=== PATIENT | female | born 1990 | race Caucasian/White ===

== ENCOUNTER 2020-03-29 14:12 | Inpatient (IN) | payer OTHER ==
--- NOTE | 2020-03-29 16:00 | ED ---
Psych HPI - General Chief Complaint: Psychiatric Symptoms Stated Complaint: Mental Health Time Seen by Provider: 03/29/20 15:36 Source: patient Mode of arrival: ambulatory - History of Present Illness Initial Comments: 21-year-old feel presenting today for chief complaint of depression suicidal ideation. Patient states she's had suicidal ideations and increasing depression and anxiety since she's been off her medication she states she recently moved to [place] from [place]. Patient denies any physical complaints she states she did not attempt to overdose but has been the past. She denies homicidal ideation. - Related Data Home Medications Medication Instructions Recorded Confirmed No Known Home Medications 03/29/20 03/29/20 Allergies Allergy/AdvReac Type Severity Reaction Status Date / Time aripiprazole [From Abilify] AdvReac "body Verified 03/29/20 18:06 shuts down" haloperidol [From Haldol] AdvReac "body Verified 03/29/20 15:01 shuts down" Review of Systems ROS Statement: Those systems with pertinent positive or pertinent negative responses have been documented in the HPI. ROS Other: All systems not noted in ROS Statement are negative. Past Medical History Past Medical History: No Reported History History of Any Multi-Drug Resistant Organisms: MRSA Date of last positivie culture/infection: 2019 MDRO Source:: axilla Past Surgical History: Section Past Psychological History: Anxiety, Bipolar, Depression Smoking Status: Current every day smoker Past Alcohol Use History: None Reported Past Drug Use History: Marijuana General Exam - General Exam Comments Initial Comments: General: The patient is awake and alert, in no distress Eye: Pupils are equal, round and reactive to light, extra-ocular movements are intact. No nystagmus. There is normal conjunctiva bilaterally. No signs of icterus. Ears, nose, mouth and throat: There are moist mucous membranes and no oral lesions. Neck: The neck is supple, there is no tenderness or JVD. Cardiovascular: There is a regular rate and rhythm. No murmur, rub or gallop is appreciated. Respiratory: Lungs are clear to auscultation, respirations are non-labored, breath sounds are equal. No wheezes, stridor, rales, or rhonchi. Gastrointestinal: Soft, non-distended, non-tender abdomen without masses or organomegaly noted. There is no rebound or guarding present. Musculoskeletal: Normal ROM, no tenderness. Strength 5/5. Sensation intact. Pulses equal bilaterally 2+. Neurological: A&O x 3. CN II-XII intact grossly, There are no obvious motor or sensory deficits. Coordination appears grossly intact. Speech is normal. Skin: Skin is warm and dry and no rashes or lesions are noted. Psychiatric: Cooperative, tearful, pressure speech Limitations: no limitations Course Vital Signs 03/29/20 03/29/20 14:57 19:18 Temperature 97.9 F 98.1 F Pulse Rate 62 Respiratory 20 Rate Blood Pressure 103/76 O2 Sat by Pulse 99 Oximetry Medical Decision Making - Medical Decision Making 29yo presenting for suicidal ideation. No attempt> Remaining ROS (-). Patient admitted after medical clearance and EPS evaluation for inpatient treatment. Patient agreeable. Disposition Clinical Impression: Depression, Suicidal ideation Disposition: ADMITTED IP TO THIS HOSP Condition: Serious Is patient prescribed a controlled substance at d/c from ED?: No Time of Disposition: 22:14 Decision to Admit Reason: Admit from EC Decision Date: 03/29/20 Decision Time: 22:14
[2020-03-29] MEDS ORDERED: LORazepam 1 MG TAB PO STA (16:07)
[2020-03-29] MEDS ORDERED: ZIPRASIDONE 20 MG CAP PO STA (17:57)
[2020-03-29] MEDS ORDERED: MAGNESIUM HYDROXIDE 2,400 MG/10 ML CUP PO PRN (19:17)
[2020-03-29] MEDS ORDERED: ACETAMINOPHEN TAB 325 MG TAB PO PRN (19:17)
[2020-03-29] MEDS ORDERED: MAG HYDROX/AL HYDROX/SIMETH 30 ML CUP PO PRN (19:17)
[2020-03-29] MEDS ORDERED: hydrOXYzine pamoate 25 MG CAP PO PRN (19:19)
[2020-03-29] MEDS ORDERED: hydrOXYzine HCL 50 MG/ML 1 ML VIAL IM PRN (19:19)
[2020-03-29] MEDS: ZIPRASIDONE 20 MG VIAL IM PRN (20:00)
[2020-03-29] MEDS: NICOTINE 14MG/24HR PATCH TRANSDERM SCH (20:00)
[2020-03-30] MEDS: NICOTINE 14MG/24HR PATCH TRANSDERM SCH ×2 (07:55→18:30)
[2020-03-30] MEDS: ZIPRASIDONE 20 MG VIAL IM PRN ×2 (08:19→20:23)
[2020-03-30 09:22] LABS: Basophils # (A) 0.1 k/uL (0-0.2); Basophils % (A) 1 %; Eosinophils # (A) 0.1 k/uL (0-0.7); Eosinophils % (A) 2 %; HCT 42.2 % (34.0-46.0); HGB 12.9 gm/dL (11.4-16.0); Lymphocytes % (A) 30 %; MCH 28.8 pg (25.0-35.0); MCHC 30.6 g/dL (31.0-37.0); MCV 94.1 fL (80.0-100.0); Mean Platelet Volume 7.7; Monocytes # (A) 0.3 k/uL (0-1.0); Monocytes % (A) 5 %; Neutrophils % (A) 59 %; Platelet Count 326 k/uL (150-450); RBC 4.49 m/uL (3.80-5.40); RDW 15.2 % (11.5-15.5); WBC 6.7 k/uL (3.8-10.6)
[2020-03-30 09:31] LABS: ALT 15 U/L (4-34); AST 29 U/L (14-36); African American GFR (CKD) >90 (>60 ml/min/1.73 sqM); Albumin 4.2 g/dL (3.5-5.0); Alkaline Phosphatase 76 U/L (38-126); Anion Gap 10 mmol/L; Blood Urea Nitrogen 17 mg/dL (7-17); Calcium 9.4 mg/dL (8.4-10.2); Carbon Dioxide 19 mmol/L (22-30); Chloride 107 mmol/L (98-107); Cholesterol 170 mg/dL (<200); Glucose 78 mg/dL (74-99); HDL Cholesterol 44 mg/dL (40-60); LDL Cholesterol,Calculated 109 mg/dL (0-99); Non-African American GFR(CKD) >90 (>60 ml/min/1.73 sqM); Sodium 136 mmol/L (137-145); Total Bilirubin 0.8 mg/dL (0.2-1.3); Total Protein 7.3 g/dL (6.3-8.2); Triglycerides 84 mg/dL (<150)
[2020-03-30 09:35] LABS: Potassium 4.9 mmol/L (3.5-5.1)
[2020-03-30] MEDS ORDERED: SERTRALINE 50 MG TAB PO STA (11:27)
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
[2020-03-30] MEDS: PRAZOSIN 1 MG CAP PO SCH (20:22)
[2020-03-30] MEDS ORDERED: OLANZapine 10 MG TAB PO SCH (21:00)
--- NOTE | 2020-03-30 22:44 | P.CONS ---
History of Present Illness - Reason for Consult Consult date: 03/30/20 - History of Present Illness Patient is a 29-year-old female with a PMH of polysubstance abuse, anxiety, and depression who presented to the emergency room with person and suicidal ideation. Patient notes that she continues to use methamphetamine and heroin IV and her last use a few days prior to presentation. The patient also reported a single instance of chest discomfort, sharp, pleuritic, left-sided, lasting for 20 minutes, occurring 5 days ago, and nonexertional. She denied associated shortness of breath and reported that this was different from her usual panic attacks. She denied any additional complaints. Denied nausea, vomiting, abdominal pain. Denied fever, chills, cough, or diarrhea. Patient's laboratory evaluation was reviewed. Review of Systems Pertinent positives and negatives as discussed in HPI, a complete review of systems was performed and all other systems are negative. Past Medical History Past Medical History: No Reported History History of Any Multi-Drug Resistant Organisms: MRSA Year Discovered:: 2019 MDRO Source:: axilla Past Surgical History: Section Past Psychological History: Anxiety, Bipolar, Depression Smoking Status: Current every day smoker Past Alcohol Use History: None Reported Past Drug Use History: Marijuana Medications and Allergies Home Medications Medication Instructions Recorded Confirmed Type No Known Home Medications 03/29/20 03/30/20 History Allergies Allergy/AdvReac Type Severity Reaction Status Date / Time aripiprazole [From Abilify] AdvReac "body Verified 03/30/20 01:03 shuts down" haloperidol [From Haldol] AdvReac "body Verified 03/30/20 01:03 shuts down" Physical Exam Vitals: Vital Signs Temp 03/30/20 19:15 98.4 F 03/30/20 13:36 98.0 F 03/30/20 07:04 98.6 F General: non toxic, no distress, appears older than stated age, normal weight Derm: no unusual rashes/lesions no unusual ecchymoses, warm, dry Head: atraumatic, normocephalic, symmetric Eyes: EOMI, no lid lag, anicteric sclera, pupils equal round reactive to light ENT: Nose and ears atraumatic, no thrush, no pharyngeal erythema Neck: No thyromegaly, no cervical lymphadenopathy, trachea midline, supple Mouth: no lip lesion, mucus membranes moist Cardiovascular: S1S2 reg, no murmur, positive posterior tibial pulse bilateral, no edema, capillary refill less than 2 seconds Lungs: CTA bilateral, no rhonchi, no rales , no accessory muscle use Abdominal: soft, nontender to palpation, no guarding, no appreciable organomegaly, normal bowel sounds Ext: no gross muscle atrophy, muscle strength 5 out of 5 in all 4 extremities grossly, no contractures, Neuro: CN II-XI grossly intact, light touch intact all 4 extremities, finger to nose within normal limits, Psych: Alert, oriented, appropriate affect Results CBC & Chem 7: 03/30/20 07:49 03/30/20 07:49 Labs: Abnormal Lab Results - Last 24 Hours (Table) 03/30/20 03/30/20 Range/Units 07:49 07:49 MCHC 30.6 L (31.0-37.0) g/dL Sodium 136 L (137-145) mmol/L Carbon Dioxide 19 L (22-30) mmol/L LDL Cholesterol, Calc 109 H (0-99) mg/dL Assessment and Plan Plan: Chest pain, likely secondary to muscle spasm -Obtain EKG Polysubstance abuse -Strongly advised on the importance of cessation -Monitor for signs of withdrawal Depression and suicidal ideation -As per psychiatry Thank you for allowing us to participate in the care of this patient. We will follow peripherally. Do not hesitate to contact us with questions. Someone can be reached from the [facility] hospitalist group at all hours of the day at [phone].
[2020-03-30 22:48] LABS: Hemoglobin A1C 5.6 % (4.0-6.0)
[2020-03-31] MEDS ORDERED: SERTRALINE 50 MG TAB PO SCH (09:00)
[2020-03-31] MEDS: NICOTINE 14MG/24HR PATCH TRANSDERM SCH (10:55)
--- NOTE | 2020-03-31 11:45 | P.PN ---
Progress Note - Text Progress Note Date: 03/31/20 Interval History: Patient was seen resting in bed and was directable and agreeable to speak with racebook writer in the office. Patient initially denied any suicidal or homicidal ideation, intention, and/or plan. She reported that she was requesting discharge. This provider then discussed if the patient is willing to sign a release of information for her grandmother, the patient then refused. The patient then began demanding that her Zyprexa be changed to Seroquel. She then reported that she needs to be enrolled in Medicaid and that she would stay here until her Medicaid is enrolled. When informed that she was not meeting any criteria for inpatient psychiatric hospitalization, only then did she report that she is still feeling increasingly depressed and suicidal and that this provider does not know what he is doing. She states that her depression continues to be elevated and that the medications have not taken effect yet. She did admit to sleeping well last night but is continuing to request Seroquel instead. She is also requesting if this treatment team is able to set her up with a Suboxone clinic in the outpatient setting. Mental Status Exam: General Appearance: Patient appears to be stated age is alert, directable, but intermittently cooperative. Behavior: Patient was initially calmly seated but later became agitated. Speech: Patient's speech is fluent and nonpressured. Mood/Affect: Mood is irate. Affect is labile - calm to irritable Suicidality/Homicidality: Patient initially denied any suicidal ideation, but then reported that she was feeling suicidal. She denies any homicidal ideation or intention. Perceptions: Patient denies any visual hallucinations and denies any auditory hallucinations Though content/process: There is no evidence of any delusional thought content and thought process is linear and goal-directed. Memory and concentration: AOX3, grossly intact for the purposes of this session Judgment and insight: Poor Assessment Bipolar Disorder, Type II, current episode depressed Posttraumatic Stress Disorder Polysubstance Use Disorder Rule out Cluster B Personality Traits Plan: -Patient continues to meet criteria for inpatient psychiatric admission for symptom stabilization and safety. Patient has signed adult voluntary form and medication consent and was placed in patient's chart. -Medications: Increase Zoloft to 100 mg by mouth daily for depression/anxiety/PTSD Increase Zyprexa to 15 mg at betime for bipolar depression Continue Prazosin 2 mg by mouth at bedtime for PTSD related nightmares. -When necessary Vistaril and Geodon for agitation/aggression. -NRT - nicotine patch -SW on board for discharge planning. Encouraged the patient to participate in milieu.
[2020-03-31] MEDS: ZIPRASIDONE 20 MG VIAL IM PRN (13:19)
[2020-03-31] MEDS: PRAZOSIN 1 MG CAP PO SCH (20:35)
[2020-03-31] MEDS ORDERED: OLANZapine 5 MG TAB PO SCH (21:00)
[2020-04-01 06:49] VITALS: BP 114/69; PULSE 81; RESP 14; TEMP 98.2
[2020-04-01] MEDS ORDERED: SERTRALINE 100 MG TAB PO SCH (09:00)
[2020-04-01] MEDS: NICOTINE 14MG/24HR PATCH TRANSDERM SCH (09:22)
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
== END 2020-04-01 13:50 | disposition home or self-care (01) | DRG 885 ==
LOC: EC 14:12 → 3MHU 19:04
PROVIDERS: ADMIT Psychiatry & Neurology Psychiatry; ATTEND Psychiatry & Neurology Psychiatry
DX: F31.81 Bipolar II disorder (principal); R45.851 Suicidal ideations; F11.20 Opioid dependence, uncomplicated; F41.0 Panic disorder [episodic paroxysmal anxiety]; F43.10 Post-traumatic stress disorder, unspecified; F60.89 Other specific personality disorders; F19.10 Other psychoactive substance abuse, uncomplicated; F15.10 Other stimulant abuse, uncomplicated; Z91.5 Personal history of self-harm; Z59.0 Homelessness; Z79.899 Other long term (current) drug therapy; M62.838 Other muscle spasm; Z71.51 Drug abuse counseling and surveillance of drug abuser; F17.210 Nicotine dependence, cigarettes, uncomplicated; Z62.810 Personal history of physical and sexual abuse in childhood; Z88.8 Allergy status to other drugs, medicaments and biological substances
CPT/HCPCS: 80053; 80061; 82075; 83036; 84443; 85025; 93005; 99285